=== PATIENT | female | born 1995 | race Caucasian/White ===

== ENCOUNTER → 2020-02-28 | Outpatient (CLI) | payer SELFPAY ==
[2020-02-28 12:24] VITALS: BMI 19.8
== END | disposition home or self-care (01) ==
LOC: LABSPEC 16:02
PROVIDERS: PCP Family Medicine; Visit Provider Physician Assistant
DX: Z20.828 Contact with and (suspected) exposure to other viral communicable diseases (principal)
CPT/HCPCS: 87635; U0003

== ENCOUNTER 2021-04-15 10:23 | Outpatient (CLI) | payer OTHER, SELFPAY ==
[2021-04-15 10:39] LABS: Absolute Lymphocyte Count 1.68 X10^3/uL (0.83-4.51); Absolute Neutrophil Count 5.3 X10^3/uL (2.0-7.7); Basophil# 0.01 X10^3/uL; Basophil% 0.1 % (0-1); Eosinophil# 0.04 X10^3/uL; Eosinophils% 0.5 % (0-5); Hemoglobin 12.8 g/dL (12.0-15.0); Lymphocyte # 1.68 X10^3/ul (0.83-4.51); Lymphocyte % 21.7 % (19-41); Mean Corp Hgb Conc 32.8 g/dL (32-36); Mean Corpuscular Hgb 28.9 pg (27.0-32.0); Mean Platelet Vol. 10.5 fl (6.2-12.0); Monocyte# 0.72 X10^3/uL; Monocyte% 9.3 % (0-10); NRBC Flagged by Analyzer 0 % (0-5); Neutrophil # 5.27 X10^3/uL (2.7-7.7); Platelet Count 232 K/mm3 (150-450); RBC Distribution Width CV 13.6 % (11.6-14.6); RBC Distribution Width SD 44.4 fl (35.1-43.9); Red Blood Count 4.43 M/mm3 (4.2-5.4); White Blood Count 7.8 K/mm3 (4.4-11.0)
[2021-04-15 11:47] LABS: HIV - WCH Non-Reactive (Nonreactive); Hepatitis B Surface Antigen Non-Reactive (Nonreactive); Hepatitis C Antibody Non-Reactive (Nonreactive); Rubella IgG Reactive (Nonreactive); Syphilis Antibodies Non-reactive
[2021-04-15 15:00] LABS: Amphetamine Urine VISTA NEGATIVE (<1000 ng/mL); Barbiturate Urine VISTA NEGATIVE (< 200 ng/mL); Benzodiazepine Urine VISTA NEGATIVE (< 200 ng/mL); Cocaine Urine VISTA NEGATIVE (< 300 ng/mL); Ecstacy Urine VISTA NEGATIVE (< 500 ng/mL); Methadone Urine VISTA NEGATIVE (< 300 ng/mL); PCP Urine VISTA NEGATIVE (< 25 ng/mL); THC Urine VISTA NEGATIVE (< 50 ng/mL); Vista UDS pH Range 7
[2021-04-19 18:07] LABS: Chlamydia By Nucleic Acid AMP Negative (Negative)
[2021-04-19 18:41] LABS: Gonococcus By Nucleic Acid AMP Negative (Negative)
[2021-04-20 16:57] LABS: HPV Reflexed? NOT INDICATED
== END 2021-04-15 23:59 | disposition short-term general hospital (02) ==
LOC: PAVLAB 10:25
PROVIDERS: PCP Family Medicine; Referring Provider Obstetrics & Gynecology; Visit Provider Obstetrics & Gynecology
DX: Z34.90 Encounter for supervision of normal pregnancy, unspecified, unspecified trimester (principal)
CPT/HCPCS: 36415; 80307; 85025; 86703; 86762; 86780; 86803; 86850; 86900; 86901; 87086; 87088; 87340; 87491; 87591; 88175; G0145

== ENCOUNTER → 2021-08-30 | Outpatient (CLI) | payer OTHER, SELFPAY ==
[2021-08-30 09:41] LABS: Absolute Lymphocyte Count 1.46 X10^3/uL (0.83-4.51); Absolute Neutrophil Count 5.7 X10^3/uL (2.0-7.7); Basophil# 0.01 X10^3/uL; Basophil% 0.1 % (0-1); Eosinophil# 0.05 X10^3/uL; Eosinophils% 0.6 % (0-5); Hematocrit 33.1 % (37-47); Hemoglobin 10.9 g/dL (12.0-15.0); Lymphocyte # 1.46 X10^3/ul (0.83-4.51); Lymphocyte % 18.6 % (19-41); Mean Corp Hgb Conc 32.9 g/dL (32-36); Mean Corpuscular Hgb 29.7 pg (27.0-32.0); Mean Corpuscular Volume 90.2 fL (81-99); Mean Platelet Vol. 10.4 fl (6.2-12.0); Monocyte# 0.58 X10^3/uL; Monocyte% 7.4 % (0-10); NRBC Flagged by Analyzer 0 % (0-5); Neutrophil # 5.68 X10^3/uL (2.7-7.7); Neutrophil % 72.7 % (47-70); Platelet Count 207 K/mm3 (150-450); RBC Distribution Width CV 12.7 % (11.6-14.6); RBC Distribution Width SD 41.8 fl (35.1-43.9); Red Blood Count 3.67 M/mm3 (4.2-5.4); White Blood Count 7.8 K/mm3 (4.4-11.0)
[2021-08-30 09:58] LABS: Glucose Challenge Gest 1H 50g 90 mg/dL (70-140)
== END | disposition home or self-care (01) ==
LOC: PAVLAB 09:21
PROVIDERS: PCP Family Medicine; Referring Provider Obstetrics & Gynecology; Visit Provider Obstetrics & Gynecology
DX: Z34.90 Encounter for supervision of normal pregnancy, unspecified, unspecified trimester (principal)
CPT/HCPCS: 36415; 82950; 85025

== ENCOUNTER 2021-09-05 08:37 | Outpatient (CLI) | payer OTHER, SELFPAY ==
[2021-09-05 21:16] VITALS: BP 118/72; TEMP 37.2
[2021-09-05 21:17] VITALS: PULSE 88; O2SAT 97
[2021-09-05] MEDS: Dextrose 5%-Lactated Ringers 1,000 ML 200 ML IV (21:43)
[2021-09-05] MEDS: Potassium Chloride 10mEq/100mL 10 MEQ/100 ML IV.SOLN. 100 MEQ IV BOLUS ×3 (21:43→23:38)
[2021-09-05] MEDS: Terbutaline 1 MG/ML Vial 0.25 MG SC (21:44)
[2021-09-05 22:02] VITALS: BMI 24.1
[2021-09-05 22:08] VITALS: O2SAT 81
[2021-09-05 22:09] VITALS: BP 117/61; PULSE 103; PULSE 92; TEMP 36.8; O2SAT 100
[2021-09-05] MEDS: cycloBENZAPRine HCl 10 MG Tablet PO (22:57)
[2021-09-05] MEDS: NIFEdipine 30 MG Tablet PO (23:54)
[2021-09-06] VITALS (36 sets, daily range): BP systolic 108–124; BP diastolic 56–72; PULSE 81–100; TEMP 36.9–37.2; O2SAT 80–99
[2021-09-06] MEDS: Potassium Chloride 10mEq/100mL 10 MEQ/100 ML IV.SOLN. 100 MEQ IV BOLUS (00:33)
--- NOTE | 2021-09-06 00:42 | CT_ITS ---
EXAM: CT abdomen and pelvis with contrast. HISTORY: Abdominal pain. Nausea and vomiting. TECHNIQUE: CT Abdomen And Pelvis W/ Contrast Injection. A radiation dose optimization technique was used for this scan. COMPARISON: None. LIMITATIONS: None. LOWER CHEST: Normal. LIVER: Normal. GALLBLADDER: Normal. BILE DUCTS: Normal. PANCREAS: Normal. SPLEEN: Normal. ADRENAL GLANDS: Normal. KIDNEYS/URETERS/BLADDER: Mild right hydronephrosis is likely secondary to compression of the distal ureter by the gravid uterus. No obstructing ureteral stone. AORTA: Normal caliber. BOWEL/MESENTERY: No small bowel obstruction. Gaseous distention of the colon could be secondary to compression of the sigmoid colon by the gravid uterus. APPENDIX: Not visualized. No secondary signs of appendicitis. PERITONEUM: Normal. REPRODUCTIVE ORGANS: A single intrauterine is identified. BONES/SOFT TISSUES: No acute fracture. OTHER: None. CONCLUSION: No small bowel obstruction. Gaseous distention of the majority of the colon could be secondary to compression of the sigmoid by the gravid uterus. Electronically Signed: Ben Escalante MD at 2:33 EDT , CT/Abdomen/Pelvis W IV Cont ONLY IMPRESSION: undefined
[2021-09-06] MEDS: HYDROmorphone 1 MG/ML Syringe IV (00:53)
[2021-09-06] MEDS: Betamethasone/Betamethasone 30 MG/5 ML Vial 12 MG IM (00:54)
[2021-09-06 01:05] LABS: Fibrinogen 505 mg/dl (203-444)
--- NOTE | 2021-09-06 01:33 | OB.TRI.HP_ITS ---
HPI - General HPI Narrative KELSEY KWONG, is a 26 F who presents with a 2-1/2-day history of abdominal pain intermittently and diarrhea. She denies any fever or vomiting but has had nausea and decreased appetite. Patient had 3 episodes of loose watery diarrhea today and since presentation to triage [facility] she is already had 2 episodes of diarrhea. She denies any sick contacts. Maternal Data Information MALENA Calculator Estimated Delivery Date Method Current WG Current Estimate 11/20/21 LMP (Certain) 29w 2d PFSH PFSH Medical History COVID-19 ruled out Home Medications multivitamin no.47-iron fum 27 mg-folate no.1 1 mg-dha 300 mg capsule cap PO 04/01/21 [History Last Taken Unknown] Allergy/AdvReac Type Severity Reaction Status Date / Time No Known Allergies Allergy Verified 08/30/21 09:48 Family History Other CHF (congestive heart failure) Diabetes Surgical History H/O wisdom tooth extraction Social History adopted: No household members: spouse current occupational status: employed current occupation: [employer] Smoking Status: Never smoker second hand exposure: No alcohol intake: never substance use type: does not use seatbelt use: always do you feel safe at home: Yes additional social history: - Julian History 1 Elective abortions Hx Para Spontaneous abortions Hx # Term Pregnancies Ectopic pregnancies Hx # Pregnancies Multiple births # of living children Visit Details Expected Delivery Route/Plan Labor Preferences- CB/BF classes: yes labor support person: Julian labor intervention preferences: [] pain management options preferred: epidural cut cord/dad catch: maybe : yes PP control planned: discussed/nonhormonal discussed possible routes of delivery and associated risks: [] special requests: [] Plans Covid status: vaccine Flu vaccine: declines Tdap vaccine: given Rhogam: na LARC form signed: yes Problem list reviewed and updated with the most current plan of care details and appropriate orders placed. Relevant counseling for the gestational age provided. Continue routine care and follow up unless otherwise noted in visit notes/problem list details OB Flowsheet Initial Weight: 140 lb Date -?-?-?-?-?-?-?-?-?-?-?-?- EGA Weight BP Urine Prot -?-?-?-?-?-?-?-?-?-?-?-?- Glucose FHR FuHt Pres Dilation -?-?-?-?-?-?-?-?-?-?-?-?- Effaced St Visit Note 04/15/21 -?-?-?-?-?-?-?-?-?-?-?-?- 8w 5d 140 lb (+0 oz) 136/86 -?-?-?-?-?-?-?-?-?-?-?-?- 175 -?-?-?-?-?-?-?-?-?-?-?-?- SM- CRL 2.3 cm c ons with LMP 05/12/21 -?-?-?-?-?-?-?-?-?-?-?-?- 12w 4d 143 lb 6 oz (+3 lb 6 oz) 128/74 Negative -?-?-?-?-?-?-?-?-?-?-?-?- Negative -?-?-?-?-?-?-?-?-?-?-?-?- JV- no lof, vagi nal bleeding, or cramping. no complaints. labs reviewed. declines genetic screening 06/08/21 -?-?-?-?-?-?-?-?-?-?-?-?- 16w 3d 148 lb 4 oz (+8 lb 4 oz) 100/58 Negative -?-?-?-?-?-?-?-?-?-?-?-?- Negative 140 -?-?-?-?-?-?-?-?-?-?-?-?- JV- no lof, cram ping, or bleeding. has anatomy scan on 06/28. 07/05/21 -?-?-?-?-?-?-?-?-?-?-?-?- 20w 2d 152 lb (+12 lb) 120/84 Negative -?-?-?-?-?-?-?-?-?-?-?-?- Negative 145 -?-?-?-?-?-?-?-?-?-?-?-?- SM- no vb lof go od fm no regular ctx 08/02/21 -?-?-?-?-?-?-?-?-?-?-?-?- 24w 2d 154 lb 2 oz (+14 lb 2 oz) 124/70 Negative -?-?-?-?-?-?-?-?-?-?-?-?- Negative 135 -?-?-?-?-?-?-?--?-?-?-?-?- JV- anterior kiara centa, no complaints. gct ordered 08/30/21 -?-?-?-?-?-?-?-?-?-?-?-?- 28w 2d 160 lb 2 oz (+20 lb 2 oz) 128/70 Negative -?-?-?-?-?-?-?-?-?-?-?-?- Negative 141 27 -?-?-?-?-?-?-?-?-?-?-?-?- MH-No VB, LOF. G ood FM. 28wk labs, tdap, [facility] 09/05/21 -?-?-?-?-?-?-?-?-?-?-?-?- 29w 1d 158 lb 11.725 oz (+18 lb 11.725 oz) 118/72 117/61 122/72 124/64 -?-?-?-?-?-?-?-?-?-?-?-?- -?-?-?-?-?-?-?-?-?-?-?-?- ROS Constitutional Constitutional: Reports systems reviewed and no addt'l complaints, except as documented Gastrointestinal Gastrointestinal: Reports as per HPI Physical Exam Const alert, oriented x3 and no apparent distress HEENT Head and Scalp: normocephalic and atraumatic Neck full ROM and no lymphadenopathy Chest inspection of chest normal Resp normal respiratory effort GI GI Narrative: gravid, abdomen soft tender to palpation no rebound or guarding, AGA Manual OB Exam: dilated 0, effaced 0 and station NST FHR Rate Baby A Baseline: 140 Variability:: Moderate Accelerations:: 15 x 15 Decelerations:: None NST Reactive:: Yes FHR Category:: Category I Uterine Activity:: Irritability Assessment & Plan (1) Abdominal pain during in third trimester: COMMENT: CBC CMP fibrinogen lipase, CT abdomen pelvis. GEN surgery consult. (2) Supervision of normal : QUALIFIERS: Normal : normal first Trimester: third trimester Qualified Code(s): Z34.03 - Encounter for supervision of normal first , third trimester COMMENT: PRR MALENA: 11/20/21 girl Spouse: Julian (3) : QUALIFIERS: Weeks of gestation: 24 weeks Qualified Code(s): Z3A.24 - 24 weeks gestation of COMMENT: declined ntd, genetic and carrier screening. (4) Anemia affecting : QUALIFIERS: Trimester: third trimester Qualified Code(s): O99.013 - Anemia complicating , third trimester COMMENT: add FE PLAN: Admitted for short-term observation, potassium replacement. IV pain medicine and antiemetics given. General surgery consulted for dilated bowel as seen on CT scan. Continuous monitoring. Celestone given for prematurity. Charges/Coding Multi Select Codes Visit Charges Office Visit/Consults: 00812 OV L3 Est Urinary/Genital Urinary/Genital CPT Codes: 90305-27 non-stress test Interp
[2021-09-06] MEDS: DiphenhydrAMINE 50 MG/ML Syringe IV (02:18)
[2021-09-06] MEDS: Lactated Ringers 1,000 ML 200 ML IV ×2 (02:55→07:50)
[2021-09-06] MEDS: HYDROmorphone 0.5 MG/0.5 ML SYRINGE IV (05:27)
--- NOTE | 2021-09-06 07:00 | US_ITS ---
STUDY: SECOND AND THIRD TRIMESTER OBSTETRICAL ULTRASOUND - LIMITED REASON FOR EXAM: Female, 26 years old routine survey LMP: Unknown. PRIOR ULTRASOUND: None. TECHNIQUE: Transabdominal TECHNICAL QUALITY: Adequate. FINDINGS: There is a single intrauterine fetus. The fetus is in a breech presentation. There is demonstrated cardiac activity with a heart rate of 129 bpm. There is a normal amniotic fluid volume. The largest amniotic fluid pocket measures 5.9 cm. The amniotic fluid index (LUKE) is 12.6 cm. The placenta is anterior in location and is not low lying. There are Grade 1 placental changes. The cervix measures 3.96 cm in length. BIOMETRY: BPD: 7.39 cm: 29 weeks, 4 days HC: 28.44 cm: 31 weeks, 1 days AC: 26.01 cm: 30 weeks, 1 days FL: 5.57 cm: 29 weeks, 2 days Age by LMP: 29 weeks, 2 days. MALENA by LMP: 11/20/2021. age by current US: 30 weeks, 2 days. MALENA by current US: 11/13/2021. Estimated weight: 1475 grams, +/- 221 grams, 59.4 percentile. US/OB Limited With Biometrics IMPRESSION: Single live intrauterine at 30 weeks, 2 days by current ultrasound with MALENA of 11/13/2021. Heart rate 129 bpm. No suspicious sonographic findings, presentation is breech Electronically Signed: Jone Carrillo MD at 9:51 EDT ,
--- NOTE | 2021-09-06 07:09 | EX.PCM.CON.S ---
Assessment & Plan Assessment/Plan (1) Abdominal pain during in third trimester: PLAN: Patient had nausea and diarrhea for 2 days duration. Unsure if this is due to viral infection versus compression of the sigmoid as suggested by the CT scan. The patient did have a very dilated ascending and transverse colon. I advised the patient to try to lay on her left side to see if any gas would pass and when she starts passing gas she may advance her diet. She is already in less pain today but she did take pain medication. She is not passing any flatus yet but she is having liquid bowel movements. Once she begins to have flatus and feel better she may try diet and be discharged. Unsure as to etiology as of now. Joni Zayas MD Pager: [facility] [address] [place] [address], [address] [place] [phone] Office: HPI Consult Data Date of Consult: 09/06/21 HPI Narrative HPI Narrative: KELSEY KWONG, is a 26 F who presented overnight with abdominal pain that started Monday. Patient reports that she started feeling nausea and started having diarrhea and then it worsened until Monday when she came into the emergency room. Patient is 29 weeks gravid. Patient reports that she did have 4 liquid bowel movements yesterday but is not passing flatus. She is not currently nauseated. Her abdominal pain is improved on pain medication. [facility] Medical History COVID-19 ruled out Home Medications multivitamin no.47-iron fum 27 mg-folate no.1 1 mg-dha 300 mg capsule cap PO 04/01/21 [History Last Taken Unknown] Allergy/AdvReac Type Severity Reaction Status Date / Time No Known Allergies Allergy Verified 08/30/21 09:48 Family History Other CHF (congestive heart failure) Diabetes Surgical History H/O wisdom tooth extraction Social History adopted: No household members: spouse current occupational status: employed current occupation: [employer] Smoking Status: Never smoker second hand exposure: No alcohol intake: never substance use type: does not use seatbelt use: always do you feel safe at home: Yes additional social history: - Julian ROS Constitutional Constitutional: Denies anorexia, fatigue or fever(s) ENT HEENT: Denies abnormal hearing Cardiovascular Cardiovascular: Denies chest pain Respiratory/Chest Respiratory/Chest: Denies cough or dyspnea Gastrointestinal Gastrointestinal: Reports abdominal pain, diarrhea and nausea Musculoskeletal Musculoskeletal: Denies abnormal gait Integumentary Integumentary: Denies new lesions Neurologic Neurologic: Denies abnormal gait or dizziness Psychiatric Psychiatric: Denies anxiety Endocrine Endocrinology: Denies flushing Hematologic/Lymphatic Hematologic/Lymphatic: Denies easy bruising Physical Exam Const alert and oriented x3 HEENT normocephalic Eyes PERRL Neck full ROM Resp normal respiratory effort Cardio Rate: regular rate Rhythm: regular rhythm GI soft to palpation and non-tender Lab / Micro Data Labs: Laboratory Results - last 24 hr 09/06/21 00:45: Fibrinogen 505 H Radiology Impression Abdomen/Pelvis CT 09/06/21 00:42 IMPRESSION: undefined
--- NOTE | 2021-09-06 07:16 | US_ITS ---
STUDY: OBSTETRICAL ULTRASOUND - BIOPHYSICAL PROFILE REASON FOR EXAM: Female, 26 years old well-being LMP: Unknown. PRIOR ULTRASOUND: None. TECHNIQUE: Transabdominal TECHNICAL QUALITY: Adequate. FINDINGS: There is a single intrauterine fetus. The fetus is in a breech presentation. There is demonstrated cardiac activity with a heart rate of 131 bpm. There is a normal amniotic fluid volume. The largest amniotic fluid pocket measures 4.47 cm. The amniotic fluid index (LUKE) is 13.6 cm. The placenta is anterior in location and is not low lying. There are Grade 1 placental changes. age by prior US: 30 weeks, 2 days. MALENA by prior US: 11/13/2021. Gender: Female BIOPHYSICAL PROFILE: Breathing Movements (FBM): 2 Gross Body Movements (GBM): 2 Tone (FT): 2 Amniotic Fluid Volume (AFV): 2 TOTAL SCORE: 8 / 8 US/Biophysical Prof W/O Non Stres IMPRESSION: Normal biophysical profile of 8/. Fetus in breech presentation Electronically Signed: Jone Carrillo MD at 9:49 EDT ,
== END 2021-09-06 13:57 | disposition home or self-care (01) ==
LOC: WPOUT 21:09 → WP 21:11
PROVIDERS: PCP Family Medicine; Visit Provider Obstetrics & Gynecology
DX: O26.893 Other specified pregnancy related conditions, third trimester (principal); R19.7 Diarrhea, unspecified; R10.9 Unspecified abdominal pain; R11.0 Nausea; Z3A.29 29 weeks gestation of pregnancy; O99.013 Anemia complicating pregnancy, third trimester; D64.9 Anemia, unspecified
CPT/HCPCS: 96365; 96366 ×2; 96368; 96361; 96375; 36415; 59025; 59050; 74177; 76816; 76819; 85384; 96372; 99218; J7120; Q9967; A4216; G0378; J0702

== ENCOUNTER 2021-09-05 19:45 | Emergency (ER) | payer OTHER, SELFPAY ==
[2021-09-05 19:46] VITALS: BP 132/78; PULSE 94; RESP 16; TEMP 36.7; O2SAT 98; BMI 24.3
--- NOTE | 2021-09-05 19:49 | ED.RN ---
called ob about pt symptoms, per charge nurse to start with pt in ED and if OB nurse is needed to call them.
--- NOTE | 2021-09-05 20:01 | EDS_ITS ---
HPI HPI - GI History of Present Illness Chief Complaint: Nausea/Vomiting Informant: patient Abdominal Pain/Flank Pain Onset: Days (2-3) Context: Gradual Onset Timing: Continuous Quality: Aching Location: Diffuse Current Severity: Severe (In past 2-3 hours) Maximum Severity: Severe Worsened by: Nothing Relieved by: Nothing Nausea/Vomiting/Emesis GI Symptom: Positive for Nausea and Vomiting Onset: Today Diarrhea/Melena/Hematochezia GI Symptom: Positive for Diarrhea; Negative for Melena and Hematochezia Onset: Days (2) Stool Quality: Positive for Watery (Nonbloody) Severity: Moderate (3-4 bouts per day) Associated Symptoms Associated Symptoms: Negative for Dysuria, Frequency, Hematuria and Urgency Narrative Narrative: 29-week 26-year-old female who is otherwise healthy presenting with worsening abdominal pain over the last couple days. Nausea and anorexia turning into vomiting just now. Pain worsened tonight she called her OB she recommended that she be evaluated in the emergency department. The pain is nonlateralizing, diffuse, she basically points to the top of her fundus and all the way across. No pain into her back with it or into her chest, no trouble breathing, normal urination no fevers or chills. No history of any prior abdominal surgeries. [facility] Medical History COVID-19 ruled out no medical history Home Medications multivitamin no.47-iron fum 27 mg-folate no.1 1 mg-dha 300 mg capsule cap PO 04/01/21 [History Last Taken Unknown] Allergy/AdvReac Type Severity Reaction Status Date / Time No Known Allergies Allergy Verified 08/30/21 09:48 Family History Other CHF (congestive heart failure) Diabetes Surgical History H/O wisdom tooth extraction Social History adopted: No household members: spouse current occupational status: employed current occupation: [employer] Smoking Status: Never smoker second hand exposure: No alcohol intake: never substance use type: does not use seatbelt use: always do you feel safe at home: Yes additional social history: - Julian GLORIA ROS ED Constitutional Constitutional ED: Reports anorexia; Denies chills or fever(s) Eyes Eyes: Denies change in vision or diplopia ENT ENT ED: Denies rhinorrhea or sore throat Cardiovascular Cardiovascular: Denies chest pain or palpitations Respiratory/Chest Respiratory/Chest: Denies cough or dyspnea Gastrointestinal Gastrointestinal: Reports as per HPI, abdominal pain, diarrhea, nausea and vomiting Genitourinary Genitourinary ED: Denies dysuria or hematuria Musculoskeletal Musculoskeletal: Denies back pain or neck pain Integumentary Denies abscess or rash Neurologic Neurologic: Denies headache(s), paresthesias or weakness Psychiatric Psychiatric: Denies anxiety or suicidal thoughts EXAM Physical Exam Const Vital Signs: 09/05/21 19:46 Temperature 98.1 F Temperature Source Temporal Pulse Rate 94 Respiratory Rate 16 Blood Pressure 132/78 H Blood Pressure Mean 96 Pulse Ox 98 Oxygen Delivery Method Room Air Positive well nourished and well developed Constitutional Narrative: No distress but appears uncomfortable in pain General Appearance ED: well developed HEENT Reports moist mucous membranes normocephalic and atraumatic Eyes PERRL and EOMs intact bilaterally Neck full ROM and supple Resp normal respiratory effort and clear to auscultation bilaterally Cardio regular rate, regular rhythm and no murmurs GI GI Narrative: Gravid uterus well above the umbilicus, diffuse abdominal tenderness, less tenderness suprapubic and distal right lower quadrant areas. No guarding or rebound tenderness. Auscultation: normoactive bowel sounds Palpation: soft Back/Spine no CVA tenderness General Back: other FROM Extremity normal to inspection General Extremety ED: Negative for edema, pulses abnormal or tenderness General Extremity: Negative for edema or pulses abnormal Neuro oriented x3, CN's II-XII intact bilaterally and no sensory deficits noted Sensorium / Orientation: awake and alert Motor Exam: strength 5/5 throughout Skin no rashes or lesions noted and no wounds MDM MDM MDM Narrative Medical decision making narrative: heart tones 140, CBC shows a white count of only 4.0, not a strong left shift. I think she may be having premature labor, and so called Dr. Alamo, who recommended adding some other labs and agreed with having her go down to L&D to where she is discharged. Treated with IV fluids, Zofran, morphine but her pain became worse and is diffuse, upper fundus. Lab Data Attestation: I reviewed the patient's lab results. Labs: Laboratory Results - last 24 hr 09/05/21 20:15 WBC 4.0 L RBC 3.74 L Hgb 10.7 L Hct 33.4 L MCV 89.3 MCH 28.6 MCHC 32.0 RDW Std Deviation 42.1 RDW Coeff of Lani 12.9 Plt Count 174 MPV 10.8 Immature Gran % (Auto) 1.300 H Neut % (Auto) 72.0 H Lymph % (Auto) 15.6 L [place] % (Auto) 10.8 H Eos % (Auto) 0.3 Baso % (Auto) 0.0 Absolute Neuts (auto) 2.9 Absolute Lymphs (auto) 0.62 L Nucleated RBC % 0 Discharge Plan Triage Chief Complaint: Nausea/Vomiting ED Provider: Cal Shin Dx/Rx/DC Orders Clinical Impression: Abdominal pain during in third trimester Prescriptions: No Action PNV-DHA 27 mg iron-1 mg -300 mg capsule PO RF: 0 Primary Care Provider: Yu Chang Referrals: Yu Chang DO [Primary Care Provider] - Activity Restrictions/Additional Instructions: Directly to labor and delivery triage Disposition Disposition: Home, Self Care
[2021-09-05] MEDS: Ondansetron 4 MG/2 ML Vial IV (20:13)
[2021-09-05] MEDS: Morphine 2 MG/ML Syringe IV (20:13)
[2021-09-05] MEDS: 0.9% Normal Saline 1,000 ML 1000 ML IV (20:13)
[2021-09-05 20:38] LABS: Bacteria 0 SEEN /hpf (None Seen); Mucous, Urine 0 SEEN /hpf (<or=2+); Red Blood Cells-Urine 0 SEEN /hpf (0-5); Squamous Epithelial Cells - UA 0 SEEN /hpf (5-10); White Blood Cells 0 SEEN /hpf (0-5)
[2021-09-05 20:39] LABS: Color, Urine Yellow (Yellow); Glucose, Dipstick Normal (Normal); Ketone-Dipstick 15 mg/dl (Negative); Leukocyte Esterase-Dipstick Negative /ul (Negative); Nitrite-Dipstick Negative (Negative); Occult Blood-Urine Negative /ul (Negative); Protein-Dipstick 15 mg/dl (Negative); Specific Gravity, Urine 1.015 (1.002-1.030); Urine Bilirubin Dipstick Negative (Negative); Urine Clarity Clear (Clear); Urine Urobilinogen Normal (Normal)
[2021-09-05 20:39] LABS: Absolute Lymphocyte Count 0.62 X10^3/uL (0.83-4.51); Absolute Neutrophil Count 2.9 X10^3/uL (2.0-7.7); Eosinophil# 0.01 X10^3/uL; Eosinophils% 0.3 % (0-5); Hematocrit 33.4 % (37-47); Hemoglobin 10.7 g/dL (12.0-15.0); Lymphocyte # 0.62 X10^3/ul (0.83-4.51); Lymphocyte % 15.6 % (19-41); Mean Corpuscular Hgb 28.6 pg (27.0-32.0); Mean Corpuscular Volume 89.3 fL (81-99); Mean Platelet Vol. 10.8 fl (6.2-12.0); Monocyte# 0.43 X10^3/uL; Monocyte% 10.8 % (0-10); NRBC Flagged by Analyzer 0 % (0-5); Neutrophil # 2.87 X10^3/uL (2.7-7.7); Platelet Count 174 K/mm3 (150-450); RBC Distribution Width CV 12.9 % (11.6-14.6); RBC Distribution Width SD 42.1 fl (35.1-43.9); Red Blood Count 3.74 M/mm3 (4.2-5.4)
[2021-09-05 20:53] LABS: ALB/GLOB Ratio 0.7 RATIO (0.9-2.4); AST(SGOT) 33 U/L (15-37); Alanine Aminotransfer ALT/SGPT 35 U/L (13-56); Albumin, Serum 2.8 g/dL (3.2-5.0); Alkaline Phosphatase 73 U/L (45-117); Anion Gap 8 (5-15); BUN 6 mg/dL (7-18); BUN/Creat Ratio 9.1 RATIO (10-20); Calcium,Total 8.4 mg/dL (8.5-10.1); Chloride 107 mmol/L (98-107); Creatinine, Serum 0.66 mg/dL (0.55-1.02); EST Glomerular Filtration Rate 116 mL/min (>60); Est Glom Filt Rate - Afr Amer 140 mL/min (>60); Estimated Creatinine Clearance 131.44 ml/min; Glucose 97 mg/dL (74-106); Lipase 96 U/L (73-393); Potassium 3.3 mmol/L (3.5-5.1); Protein, Total 6.8 g/dL (6.4-8.2); Sodium Level 137 mmol/L (136-145)
== END 2021-09-05 20:55 | disposition home or self-care (01) ==
PROVIDERS: Emergency Provider Emergency Medicine; PCP Family Medicine; Visit Provider Emergency Medicine
DX: O26.893 Other specified pregnancy related conditions, third trimester (principal); O21.2 Late vomiting of pregnancy; Z3A.29 29 weeks gestation of pregnancy; R10.9 Unspecified abdominal pain; R19.7 Diarrhea, unspecified; O99.891 Other specified diseases and conditions complicating pregnancy; O99.613 Diseases of the digestive system complicating pregnancy, third trimester
CPT/HCPCS: 80053; 81001; 83690; 85025; 96361; 96374; 96375; 99281; 99282; J2405

== ENCOUNTER → 2021-10-25 | Outpatient (CLI) | payer OTHER, SELFPAY | END | disposition home or self-care (01) | LOC: LABSPEC 16:46 | PROVIDERS: PCP Family Medicine; Visit Provider Obstetrics & Gynecology | DX: Z34.03 Encounter for supervision of normal first pregnancy, third trimester (principal) | CPT/HCPCS: 87081 ==

== ENCOUNTER 2021-11-21 17:00 | Inpatient (IN) | payer OTHER, SELFPAY ==
[2021-11-21] VITALS (38 sets, daily range): BP systolic 91–141; BP diastolic 51–86; PULSE 67–119; TEMP 35.9–36.5; O2SAT 98–100; BMI 25.4
[2021-11-21] MEDS: Lactated Ringers 1,000 ML 50 ML IV (17:00)
[2021-11-21 17:33] LABS: Absolute Neutrophil Count 5.7 X10^3/uL (2.0-7.7); Basophil# 0.02 X10^3/uL; Basophil% 0.3 % (0-1); Eosinophil# 0.06 X10^3/uL; Eosinophils% 0.8 % (0-5); Hematocrit 34.6 % (37-47); Hemoglobin 10.9 g/dL (12.0-15.0); Lymphocyte % 17.6 % (19-41); Mean Corp Hgb Conc 31.5 g/dL (32-36); Mean Corpuscular Hgb 26.5 pg (27.0-32.0); Mean Corpuscular Volume 84.2 fL (81-99); Mean Platelet Vol. 11.9 fl (6.2-12.0); Monocyte# 0.71 X10^3/uL; Monocyte% 8.9 % (0-10); NRBC Flagged by Analyzer 0 % (0-5); Neutrophil % 71.8 % (47-70); Platelet Count 220 K/mm3 (150-450); RBC Distribution Width CV 14.5 % (11.6-14.6); RBC Distribution Width SD 44.3 fl (35.1-43.9); Red Blood Count 4.11 M/mm3 (4.2-5.4); White Blood Count 7.9 K/mm3 (4.4-11.0)
[2021-11-21] MEDS: LACTATED RINGERS 500 ML 999 ML IV (18:58)
[2021-11-21] MEDS: fentaNYL-bupivacaine (epidural) 100 ML BAG EPIDURAL (20:14)
[2021-11-21] MEDS: Ondansetron 4 MG/2 ML Vial IV (21:27)
[2021-11-22] VITALS (16 sets, daily range): BP systolic 106–163; BP diastolic 58–80; PULSE 66–117; RESP 16–18; TEMP 36.1–36.6; O2SAT 97–99
[2021-11-22] MEDS: LACTATED RINGERS 500 ML 999 ML IV (00:15)
[2021-11-22] MEDS: Lactated Ringers 1,000 ML 200 ML IV (00:21)
[2021-11-22] MEDS: fentaNYL-bupivacaine (epidural) 100 ML BAG EPIDURAL (00:50)
--- NOTE | 2021-11-22 01:19 | HP.PCM.OB_ITS ---
HPI - General General Date of Admission: 11/21/21 HPI Narrative KELSEY NGUYEN, is a 26 F who presents IAL 4-5 cm with regualr ctx. she is doing well with no vb lof admits good fm has had an uncomplicated pregnacny. Maternal Data Information MALENA Calculator Estimated Delivery Date Method Current WG Current Estimate 11/20/21 LMP (Certain) 40w 2d PFSH PFSH Medical History Anemia affecting COVID-19 ruled out Home Medications multivitamin no.47-iron fum 27 mg-folate no.1 1 mg-dha 300 mg capsule (PNV-DHA) cap PO 04/01/21 [History Last Taken 11/20/21 06:00] breast pump #1 ea 10/06/21 [Rx Last Taken Unknown] hydroxyzine pamoate 50 mg capsule (Vistaril) 50 mg PO QHS sleep aid 11/21/21 [History Last Taken 11/20/21 22:00] Allergy/AdvReac Type Severity Reaction Status Date / Time No Known Allergies Allergy Verified 11/19/21 16:22 Family History (Updated 11/21/21 @ 17:20 by Meagan Hawkins RN) Unknown CHF (congestive heart failure) Grandmother CHF (congestive heart failure) Grandmother Diabetes Surgical History H/O wisdom tooth extraction Social History adopted: No household members: spouse current occupational status: employed current occupation: [employer] Smoking Status: Former smoker second hand exposure: No alcohol intake: never substance use type: does not use seatbelt use: always do you feel safe at home: Yes additional social history: - Julian History 1 Elective abortions Hx Para 0 Spontaneous abortions Hx # Term Pregnancies Ectopic pregnancies Hx # Pregnancies Multiple births # of living children 1 Visit Details Expected Delivery Route/Plan Labor Preferences- labor support person: Julian labor intervention preferences: open pain management options preferred: epidural cut cord/dad catch: yes : yes PP control planned: [] discussed possible routes of delivery and associated risks: [] special requests: [] Plans Covid status: discussed Flu vaccine: discussed Tdap vaccine: given Rhogam: na LARC form signed: declined movement and labor precautions reviewed. Problem list reviewed and updated with the most current plan of care details and appropriate orders placed. Relevant counseling for the gestational age provided. Continue routine care and follow up unless otherwise noted in visit notes/problem list details OB Flowsheet Initial Weight: Not Recorded Date -?-?-?-?-?-?-?-?-?-?-?-?- EGA Weight BP Urine Prot -?-?-?-?-?-?-?-?-?-?-?-?- Glucose FHR FuHt Pres Dilation -?-?-?-?-?-?-?-?-?-?-?-?- Effaced St Visit Note 11/19/21 -?-?-?-?-?-?-?-?-?-?-?-?- 39w 6d 167 lb 6 oz 123/82 Nega tive -?-?-?-?-?-?-?-?-?-?-?-?- Negative 140 39 Cephalic 2 .5 -?-?-?-?-?-?-?-?--?-?-?-?- 70 -1 SM- no vb lof good fm no regular ctx 11/21/21 -?-?-?-?-?-?-?-?-?-?-?-?- 40w 1d 167 lb 8.821 oz 137/ 86 134/69 139/84 140/81 141/82 125/72 110/60 106/57 117/66 114/55 105/56 100/55 107/62 104/58 93/53 97/55 91/52 106/54 107/69 107/51 108/58 -?-?-?-?-?-?-?-?-?-?-?-?- -?-?-?-?-?-?-?-?-?-?-?-?- NST FHR Rate Baby A Baseline: 140 Variability:: Moderate Accelerations:: 15 x 15 Decelerations:: None NST Reactive:: Yes FHR Category:: Category I Uterine Activity:: q3-5 ROS Constitutional Constitutional: Reports systems reviewed and no addt'l complaints, except as documented ENT HEENT: Reports systems reviewed and no addt'l complaints, except as documented Cardiovascular Cardiovascular: Reports systems reviewed and no addt'l complaints, except as documented Respiratory/Chest Respiratory/Chest: Reports systems reviewed and no addt'l complaints, except as documented Gastrointestinal Gastrointestinal: Reports systems reviewed and no addt'l complaints, except as documented and nausea; Denies abdominal pain Genitourinary Genitourinary: Reports systems reviewed and no addt'l complaints, except as documented, contractions Details: present and frequency (regular ) and movement Details: present Musculoskeletal Musculoskeletal: Reports systems reviewed and no addt'l complaints, except as documented Integumentary Integumentary: Reports as per HPI Neurologic Neurologic: Reports systems reviewed and no addt'l complaints, except as documented Endocrine Endocrinology: Reports systems reviewed and no addt'l complaints, except as docu mented Vital Signs Vital Signs Vital Signs: 11/21/21 16:52 11/21/21 16:52 11/21/21 16:52 Temperature Temperature Source Pulse Rate 69 Blood Pressure 137/86 H BP Systolic 137 BP Diastolic 86 Pulse Ox 98 11/21/21 16:53 11/21/21 19:19 11/21/21 19:19 Temperature Temperature Source Temporal Pulse Rate 88 Blood Pressure 134/69 H BP Systolic 134 BP Diastolic 69 Pulse Ox 11/21/21 19:19 11/21/21 19:19 11/21/21 19:19 Temperature 97.0 F L Temperature Source Temporal Pulse Rate Blood Pressure BP Systolic BP Diastolic Pulse Ox 98 11/21/21 19:57 11/21/21 19:57 11/21/21 19:59 Temperature Temperature Source Pulse Rate 92 Blood Pressure 139/84 H BP Systolic 139 BP Diastolic 84 Pulse Ox 99 11/21/21 19:59 11/21/21 20:02 11/21/21 20:02 Temperature Temperature Source Pulse Rate 112 H 107 H Blood Pressure BP Systolic BP Diastolic Pulse Ox 98 11/21/21 20:04 11/21/21 20:04 11/21/21 20:07 Temperature Temperature Source Pulse Rate 87 110 H Blood Pressure 140/81 H BP Systolic 140 BP Diastolic 81 Pulse Ox 11/21/21 20:07 11/21/21 20:09 11/21/21 20:09 Temperature Temperature Source Pulse Rate 90 Blood Pressure 141/82 H BP Systolic 141 BP Diastolic 82 Pulse Ox 98 11/21/21 20:12 11/21/21 20:12 11/21/21 20:16 Temperature Temperature Source Pulse Rate 96 Blood Pressure 125/72 H BP Systolic 125 BP Diastolic 72 Pulse Ox 98 11/21/21 20:16 11/21/21 20:17 11/21/21 20:17 Temperature Temperature Source Pulse Rate 104 H 119 H Blood Pressure BP Systolic BP Diastolic Pulse Ox 98 11/21/21 20:22 11/21/21 20:22 11/21/21 20:23 Temperature Temperature Source Pulse Rate 84 Blood Pressure 110/60 BP Systolic 110 BP Diastolic 60 Pulse Ox 100 11/21/21 20:23 11/21/21 20:24 11/21/21 20:24 Temperature Temperature Source Pulse Rate 83 88 Blood Pressure 106/57 L BP Systolic 106 BP Diastolic 57 Pulse Ox 11/21/21 20:27 11/21/21 20:27 11/21/21 20:29 Temperature Temperature Source Pulse Rate 87 Blood Pressure 117/66 BP Systolic 117 BP Diastolic 66 Pulse Ox 100 11/21/21 20:29 11/21/21 20:32 11/21/21 20:32 Temperature Temperature Source Pulse Rate 90 118 H Blood Pressure BP Systolic BP Diastolic Pulse Ox 99 11/21/21 20:35 11/21/21 20:35 11/21/21 20:37 Temperature Temperature Source Pulse Rate 72 105 H Blood Pressure 114/55 L BP Systolic 114 BP Diastolic 55 Pulse Ox 11/21/21 20:37 11/21/21 20:39 11/21/21 20:39 Temperature Temperature Source Pulse Rate 73 Blood Pressure 105/56 L BP Systolic 105 BP Diastolic 56 Pulse Ox 100 11/21/21 20:42 11/21/21 20:42 11/21/21 20:44 Temperature Temperature Source Pulse Rate 98 Blood Pressure 100/55 L BP Systolic 100 BP Diastolic 55 Pulse Ox 99 11/21/21 20:44 11/21/21 20:47 11/21/21 20:47 Temperature Temperature Source Pulse Rate 100 83 Blood Pressure BP Systolic BP Diastolic Pulse Ox 100 11/21/21 20:49 11/21/21 20:49 11/21/21 20:52 Temperature Temperature Source Pulse Rate 97 77 Blood Pressure 107/62 BP Systolic 107 BP Diastolic 62 Pulse Ox 11/21/21 20:52 11/21/21 20:54 11/21/21 20:54 Temperature Temperature Source Pulse Rate 97 Blood Pressure 104/58 L BP Systolic 104 BP Diastolic 58 Pulse Ox 99 11/21/21 20:57 11/21/21 20:57 11/21/21 21:00 Temperature Temperature Source Pulse Rate 79 Blood Pressure 93/53 L BP Systolic 93 BP Diastolic 53 Pulse Ox 99 11/21/21 21:00 11/21/21 21:02 11/21/21 21:02 Temperature Temperature Source Pulse Rate 95 106 H Blood Pressure BP Systolic BP Diastolic Pulse Ox 98 11/21/21 21:04 11/21/21 21:04 11/21/21 21:07 Temperature Temperature Source Pulse Rate 71 105 H Blood Pressure 97/55 L BP Systolic 97 BP Diastolic 55 Pulse Ox 11/21/21 21:07 11/21/21 21:09 11/21/21 21:09 Temperature Temperature Source Pulse Rate 102 H Blood Pressure 91/52 L BP Systolic 91 BP Diastolic 52 Pulse Ox 99 11/21/21 21:12 11/21/21 21:12 11/21/21 21:23 Temperature Temperature Source Temporal Pulse Rate 112 H Blood Pressure BP Systolic BP Diastolic Pulse Ox 100 11/21/21 21:23 11/21/21 21:23 11/21/21 21:23 Temperature 97.1 F L Temperature Source Pulse Rate 97 Blood Pressure 106/54 L BP Systolic 106 BP Diastolic 54 Pulse Ox 11/21/21 22:29 11/21/21 22:29 11/21/21 22:29 Temperature Temperature Source Temporal Pulse Rate 71 Blood Pressure 107/69 BP Systolic 107 BP Diastolic 69 Pulse Ox 11/21/21 22:29 11/21/21 23:39 11/21/21 23:39 Temperature 96.7 F L Temperature Source Pulse Rate 71 Blood Pressure 107/51 L BP Systolic 107 BP Diastolic 51 Pulse Ox 11/21/21 23:40 11/21/21 23:40 11/21/21 23:38 Temperature Temperature Source Temporal Pulse Rate 67 Blood Pressure BP Systolic BP Diastolic Pulse Ox 99 11/21/21 23:38 11/22/21 00:22 11/22/21 00:22 Temperature 97.7 F L Temperature Source Pulse Rate 66 Blood Pressure 108/58 L BP Systolic 108 BP Diastolic 58 Pulse Ox 11/22/21 00:23 11/22/21 00:23 Temperature Temperature Source Pulse Rate 74 Blood Pressure BP Systolic BP Diastolic Pulse Ox 99 Weight Weight: 167 lb 8.821 oz Body Mass Index (BMI) 25.4 Physical Exam Const alert, oriented x3 and healthy appearing Constitutional Narrative: uncomfortable with contractions HEENT normocephalic and moist oral mucous membranes Head and Scalp: atraumatic Neck full ROM, no lymphadenopathy, supple and thyroid normal General: trachea midline Thyroid: thyroid normal Lymph Lymphatic: no lymphadenopathy noted Chest inspection of chest normal Resp normal respiratory effort Cardio regular rate GI normal to inspection, nondistended, normoactive bowel sounds, soft to palpation and non-tender Inspection: gravid external exam normal Bimanual Exam - Vag & Uterus: uterus non-tender Manual OB Exam: estimated gestational size appropriate, presentation cephalic, dilated, effaced and station Extremity normal to inspection General Extremity: Negative for edema Skin no rashes or lesions noted Neuro deep tendon reflexes 2+ bilaterally Motor Exam: strength 5/5 throughout and clonus absent Psych mental status grossly normal Labs Labs Labs: Blood Type B POSITIVE Antibody Screen NEGATIVE Hct 34.6 % (37-47) L Hgb 10.9 g/dL (12.0-15.0) L Obstetrics US Syphilis Total Ab Non-reactive Rubella IgG Antibody Reactive (Nonreactive) Hep Bs Antigen Non-Reactive (Nonreactive) Chlamydia DNA (LIBRADO) Negative (Negative) Neisseria gonorrhoeae DNA (LIBRADO) Negative (Negative) HIV 1&2 Antibody Non-Reactive (Nonreactive) Glucose 1 Hr 50 gm 90 mg/dL (70-140) Assessment & Plan (1) History of tetanus and diphtheria vaccination: (2) Anemia affecting : COMMENT: add FE (3) : QUALIFIERS: Weeks of gestation: 39 weeks Qualified Code(s): Z3A.39 - 39 weeks gestation of COMMENT: GBS neg. Declined NTD, genetic and carrier screening (4) Supervision of normal : COMMENT: PRR MALENA: 11/20/21 girl Peterson Spouse: Julian (5) Active labor at term: PLAN: Plan Patient presents IAL, plan expectant management for , pitocin/AROM PRN if needed. Pain management: plan epidural. GBS none. Management of any complications: none I have reviewed the [facility] and made any clinically relevant updates.
--- NOTE | 2021-11-22 01:21 | OP.PCM_ITS ---
Assessment & Plan (1) Active labor at term: (2) History of tetanus and diphtheria vaccination: (3) Anemia affecting : COMMENT: add FE (4) : QUALIFIERS: Weeks of gestation: 39 weeks Qualified Code(s): Z3A.39 - 39 weeks gestation of COMMENT: GBS neg. Declined NTD, genetic and carrier screening (5) Supervision of normal : COMMENT: PRR MALENA: 11/20/21 girl Peterson Spouse: Julian (6) Vaginal delivery: COMMENT: SM IAL girl Peterson Maternal Data Information MALENA Calculator Estimated Delivery Date Method Current WG Current Estimate 11/20/21 LMP (Certain) 40w 2d Vaginal Delivery Operative Information Date of Procedure: 11/22/21 Pre-Operative Diagnosis: IAL Post-Operative Diagnosis: same Surgery / Procedure Performed: Spontaneous Vaginal Delivery Type of Anesthesia: Epidural Special Medications: none Estimated Blood Loss: 400 Fluids Replaced: crystalloid Findings Description of Procedure: Patient began pushing and delivered the head in the VEL presentation. The head was delivered atraumatically loose nuchal x 1 reduced. The anterior and posterior shoulders delivered without complication followed by the rest of the and the infant was placed on the maternal abdomen. Delayed cord clamping was employed for approximately 60 seconds. Cord was clamped and cut and gentle traction was applied to the cord and the placenta delivered spontaneously immediately following it was noted to be intact with three-vessel cord. The perineum and vagina were inspected and noted to have a second degree laceration repaired in the usual fashion wtih 3-0 rapide. EBL was 400. Patient and infant tolerated delivery well. Presentation: VEL Amniotic Membrane Rupture Type: Artificial Amniotic Fluid Description: Clear Placental Delivery Description: Spontaneous Placenta Disposition: [facility] Cord Vessel Description: 3 Vessels Cord Entanglement: Around neck x 1, loose Infant A Gender: Female Delayed Cord Clamping: Yes Post Vaginal Delivery Medications Given After Delivery: IV Pitocin Episiotomy Description: None Laceration: Perineal Extension/lac and 2nd degree Complication Complications: None Procedures Urinary/Genital [id number]: [id number] Vaginal Delivery [facility]
--- NOTE | 2021-11-22 01:28 | DCINST_ITS ---
Discharge Instructions Diet Discharge Diet: No restrictions Activity Discharge Activity: Return to Normal Activity, May Drive, May Shower and May Take a Tub Bath (in 4 weeks) May resume sexual activity in: 6-8 weeks (after seen by OB provider) Weight Bearing Status: Full weight bearing Lifting Restrictions: none Dressing / Incision Call your doctor if you observe: Fever of 101 or Higher, Inability to urinate, Using more than 1 pad per hour (for more than 2 hours in a row or more), Shortness of breath, Dizziness, Chest pain and - (headache not controlled with tylenol, change in vision) Follow Up Care When: in 6 weeks for visit, call the office to make the appointment. If you had elevated blood pressures call the office to be seen within 1 week. Test Results: Test results from this visit will be discussed in further detail at your follow- up appointment, if applicable. Discharge Plan Admission Admit Date/Time: 11/21/21 17:00 Attending Provider: Miya Valadez Primary Care Provider: Yu Chang Discharge Orders/Prescriptions Prescriptions: No Action PNV-DHA 27 mg iron-1 mg -300 mg capsule PO (DME) breast pump Device See Rx Instructions .ROUTE .MEDSUPPLY Qty: 1 0RF Rx Instructions: As directed hydroxyzine pamoate [Vistaril] 50 mg capsule 50 mg PO QHS Referrals / Follow Up: Yu Chang DO [Primary Care Provider] - Disposition Disposition (needs filled in before D/C Order can be placed): Home, Self Care
[2021-11-22] MEDS: Oxytocin 30 units/NS 500 ml 30 UNITS/500 ML IV.SOLN 334 UNITS IV (01:50)
[2021-11-22] MEDS: Naproxen 500 MG Tablet PO ×2 (03:52→16:30)
[2021-11-22] MEDS: Acetaminophen 500 MG Tablet 1000 MG PO ×4 (04:55→22:34)
[2021-11-22] MEDS: oxyCODONE 5 MG Tablet PO ×2 (09:34→19:52)
[2021-11-22] MEDS: Senna/Docusate Sodium 1 Tablet PO (09:34)
[2021-11-23 02:12] VITALS: BP 124/80; PULSE 82; RESP 14; TEMP 36.3
[2021-11-23] MEDS: Naproxen 500 MG Tablet PO (02:43)
--- NOTE | 2021-11-23 07:37 | PCM.PN.OB ---
Subjective Subjective Patient doing well without complaints. Tolerating PO. Ambulating and voiding without difficulty. Feeding well. Denies chest pain, shortness of breath, calf pain/swelling, fevers, chills, lightheadedness. Objective Data Objective Data Vital Signs: Vital Signs Temp Pulse Resp BP Pulse Ox O2 Del Method 97.3 F L 82 14 124/80 H 98 Room Air 11/23/21 02:12 11/23/21 02:12 11/23/21 02:12 11/23/21 02:12 11/22/21 16:53 11/23/21 02:12 Oxygen Delivery Method Room Air Weight: 167 lb 8.821 oz Body Mass Index (BMI) 25.4 Intake & Output: Intake and Output for Last 24 Hours 11/21/21 11/22/21 11/23/21 23:59 23:59 23:59 Intake Total 630.83 / 630.83 2009.50 / 2009.50 Output Total 1350 / 1350 Balance 630.83 / 630.83 659.50 / 659.50 Lab / Micro Data Result Diagrams: 11/21/21 17:00 Micro: Microbiology 11/21/21 17:00 Nasal Secretion SARS-CoV-2 Antigen (Rapid) - Final Physical Exam Const alert and oriented x3 HEENT normocephalic Eyes PERRL Neck full ROM Resp normal respiratory effort GI soft to palpation GI Narrative: FF below U Assessment & Plan (1) Vaginal delivery: COMMENT: SM IAL girl Peterson PLAN: Plan s/p PPD #1 1. routine post delivery care 2. breast feeding- support given 3. rh positive 4. rubella immune 5. home today
[2021-11-23 08:08] VITALS: BP 123/74; PULSE 89; RESP 16; TEMP 36.2
[2021-11-23] MEDS: Acetaminophen 500 MG Tablet 1000 MG PO (08:46)
[2021-11-23] MEDS: Senna/Docusate Sodium 1 Tablet PO (08:46)
== END 2021-11-23 10:47 | disposition home or self-care (01) | DRG 807 ==
LOC: WPOUT 17:11 → WP 17:11
PROVIDERS: Admitting Provider Obstetrics & Gynecology; PCP Family Medicine; Referring Provider Obstetrics & Gynecology; Visit Provider Obstetrics & Gynecology
DX: O70.1 Second degree perineal laceration during delivery (principal); Z37.0 Single live birth; O69.81X0 Labor and delivery complicated by cord around neck, without compression, not applicable or unspecified; Z87.891 Personal history of nicotine dependence; Z3A.39 39 weeks gestation of pregnancy
CPT/HCPCS: 59025; 59050; 85025; 86850; 86900; 86901; 87426; 99218; J7120; G0378; J2405

== ENCOUNTER → 2023-07-19 | Outpatient (CLI) | payer OTHER, SELFPAY ==
[2023-07-19 12:20] LABS: Absolute Lymphocyte Count 1.87 X10^3/uL (0.83-4.51); Absolute Neutrophil Count 4.3 X10^3/uL (2.0-7.7); Basophil# 0.02 X10^3/uL; Basophil% 0.3 % (0-1); Eosinophil# 0.08 X10^3/uL; Eosinophils% 1.2 % (0-5); Hematocrit 36.8 % (37-47); Hemoglobin 12.2 g/dL (12.0-15.0); Lymphocyte # 1.87 X10^3/ul (0.83-4.51); Lymphocyte % 26.9 % (19-41); Mean Corp Hgb Conc 33.2 g/dL (32-36); Mean Corpuscular Hgb 28.1 pg (27.0-32.0); Mean Corpuscular Volume 84.8 fL (81-99); Monocyte# 0.61 X10^3/uL; Monocyte% 8.8 % (0-10); NRBC Flagged by Analyzer 0 % (0-5); Neutrophil # 4.34 X10^3/uL (2.7-7.7); Neutrophil % 62.5 % (47-70); Platelet Count 232 K/mm3 (150-450); RBC Distribution Width CV 13.8 % (11.6-14.6); Red Blood Count 4.34 M/mm3 (4.2-5.4); White Blood Count 6.9 K/mm3 (4.4-11.0)
[2023-07-19 13:31] LABS: HIV - WCH Non-Reactive (Nonreactive); Hepatitis B Surface Antigen Non-Reactive (Nonreactive); Hepatitis C Antibody Non-Reactive (Nonreactive); Rubella IgG Reactive (Nonreactive); Syphilis Antibodies Non-reactive
[2023-07-22 07:08] LABS: Chlamydia By Nucleic Acid AMP Negative (Negative); Gonococcus By Nucleic Acid AMP Negative (Negative)
== END | disposition home or self-care (01) ==
LOC: LAB 12:00
PROVIDERS: PCP Family Medicine; Referring Provider Registered Nurse; Visit Provider Registered Nurse
DX: O09.90 Supervision of high risk pregnancy, unspecified, unspecified trimester (principal); Z3A.00 Weeks of gestation of pregnancy not specified
CPT/HCPCS: 36415; 85025; 86703; 86762; 86780; 86803; 86850; 86900; 86901; 87086; 87340; 87491; 87591

== ENCOUNTER 2023-11-15 08:35 | Outpatient (CLI) | payer OTHER, SELFPAY ==
[2023-11-15 08:54] LABS: Absolute Lymphocyte Count 1.55 X10^3/uL (0.83-4.51); Absolute Neutrophil Count 4.7 X10^3/uL (2.0-7.7); Basophil# 0.01 X10^3/uL; Basophil% 0.1 % (0-1); Eosinophil# 0.08 X10^3/uL; Eosinophils% 1.2 % (0-5); Hematocrit 33.8 % (37-47); Hemoglobin 11.2 g/dL (12.0-15.0); Lymphocyte # 1.55 X10^3/ul (0.83-4.51); Lymphocyte % 22.6 % (19-41); Mean Corp Hgb Conc 33.1 g/dL (32-36); Mean Corpuscular Hgb 29.2 pg (27.0-32.0); Mean Corpuscular Volume 88.3 fL (81-99); Mean Platelet Vol. 10.7 fl (6.2-12.0); Monocyte# 0.53 X10^3/uL; Monocyte% 7.7 % (0-10); NRBC Flagged by Analyzer 0 % (0-5); Neutrophil # 4.66 X10^3/uL (2.7-7.7); Neutrophil % 67.8 % (47-70); Platelet Count 212 K/mm3 (150-450); RBC Distribution Width CV 13.5 % (11.6-14.6); RBC Distribution Width SD 43.8 fl (35.1-43.9); Red Blood Count 3.83 M/mm3 (4.2-5.4); White Blood Count 6.9 K/mm3 (4.4-11.0)
[2023-11-15 09:04] LABS: Glucose Challenge Gest 1H 50g 102 mg/dL (70-140)
[2023-11-15 15:50] LABS: HIV - WCH Non-Reactive (Nonreactive); Syphilis Antibodies Non-reactive
== END 2023-11-15 23:59 | disposition home or self-care (01) ==
LOC: PAVLAB 08:36
PROVIDERS: Obstetrics & Gynecology; PCP Family Medicine; Referring Provider Obstetrics & Gynecology; Visit Provider Obstetrics & Gynecology
DX: O09.92 Supervision of high risk pregnancy, unspecified, second trimester (principal); Z13.1 Encounter for screening for diabetes mellitus; Z3A.00 Weeks of gestation of pregnancy not specified
CPT/HCPCS: 36415; 82950; 85025; 86703; 86780